=== PATIENT | male | born 1995 | race African-American/Black ===

== ENCOUNTER 2017-08-28 10:57 | Emergency (ER) | payer OTHER ==
[~2017-08-28] VITALS: Ht 172.7 cm; Wt 72.6 kg
[2017-08-28 12:15] VITALS: BP 153/81
[2017-08-28] MEDS ORDERED: AMOX500C PO (12:18)
--- NOTE | 2017-08-28 12:19 | PHYS DOC ---
Adult General Chief Complaint Chief Complaint: SORE THROAT HPI HPI Patient is a 22 year old male presents to the emergency department stating that he developed a sore throat yesterday. He denies any fever, chills or any nausea or vomiting. He does state his had 2 episodes of diarrhea while he's been here in the emergency department. They deny anybody else in the family having diarrhea. Review of Systems Review of Systems Constitutional: Denies fever or chills [] Eyes: Denies change in visual acuity, redness, or eye pain [] HENT: Denies nasal congestion C/o sore throat [] Respiratory: Denies cough or shortness of breath [] Cardiovascular: No additional information not addressed in HPI [] GI: Denies abdominal pain, nausea, vomiting. C/o diarrhea : Denies dysuria or hematuria [] Musculoskeletal: Denies back pain or joint pain [] Integument: Denies rash or skin lesions [] Neurologic: Denies headache, focal weakness or sensory changes [] Endocrine: Denies polyuria or polydipsia [] All other systems were reviewed and found to be within normal limits, except as documented in this note. Physical Exam Physical Exam Constitutional: Well developed, well nourished, no acute distress, non-toxic appearance. [] HENT: Normocephalic, atraumatic, bilateral external ears normal, oropharynx moist, no oral exudates, nose normal. Bilateral TM normal, throat with redness noted bilaterally. No uvula deviation noted. Eyes: PERRLA, EOMI, conjunctiva normal, no discharge. [] Neck: Normal range of motion, no tenderness, supple, no stridor. [] Cardiovascular:Heart rate regular rhythm, no murmur [] Lungs & Thorax: Bilateral breath sounds clear to auscultation [] Abdomen: Bowel sounds normal, soft, no tenderness, no masses, no pulsatile masses. [] Skin: Warm, dry, no erythema, no rash. [] Extremities: No tenderness, no cyanosis, no clubbing, ROM intact, no edema. [] Neurologic: Alert and oriented X 3, normal motor function, normal sensory function, no focal deficits noted. [] Psychologic: Affect normal, judgement normal, mood normal. [] EKG EKG [] Radiology/Procedures Radiology/Procedures [] Course & Med Decision Making Course & Med Decision Making Pertinent Labs and Imaging studies reviewed. (See chart for details) Rapid strep was positive. Patient was provided with the option of a Bicillin injection or amoxicillin pills. Patient has requested the amoxicillin pills. He will be discharged home with recommendations for plenty of fluids cough drops and lozenges to soothe the throat warm saltwater gargles 4 times a day. Also recommended Tylenol or ibuprofen for fever chills or generalized body aches and discomfort. Also recommended Imodium for diarrhea if it last 2-3 days. Clear liquid diet for the next 24 hours. Patient agrees with discharge instructions treatment regimen and followup recommendations. I've spoken with the patient and/or caregivers. I've explained the patient's condition, diagnosis and treatment plan based on information available to me at this time. I've answered the patient's and/or caregivers questions and addressed any concerns. The patient and/or caregivers have a good understanding the patient's diagnosis, condition and treatment plan as can be expected at this point. Vital signs have been stabilized. The patient's condition is stable for discharge from the emergency department. The patient will pursue further outpatient evaluation with her primary care provider or other designated consulting physician as outlined in the discharge instructions. Patient and/or caregivers are agreeable to this plan of care and follow-up instructions have been explained in detail. The patient and/or caregivers have received these instructions in written format and expressed understanding of these discharge instructions. The patient and her caregivers are aware that if any significant change in condition or worsening of symptoms should prompt him to immediately return to this of the closest emergency department. If an emergent department is not readily available I would encourage him to call 911. Van Disclaimer Van Disclaimer This electronic medical record was generated, in whole or in part, using a voice recognition dictation system. Departure Departure Impression: Primary Impression: Strep throat Disposition: 01 HOME, SELF-CARE Condition: STABLE Referrals: UNKNOWN PCP NAME (PCP) Patient Instructions: Strep Throat, [id number] Additional Instructions: Activity as tolerated. Medications as prescribed. Tylenol or ibuprofen for fever chills or generalized body aches and discomfort. Drink plenty of fluids Clear liquid diet for the next 24 hours Warm salt water gargles 4 times a day Change your tooth brush in the next 24 hours Followup with primary care provider in 7-10 days Return to the emergency department as needed for signs and symptoms that become worse. Scripts Amoxicillin (AMOXICILLIN) 500 Mg Capsule 1 CAP PO BID, #20 CAP Prov: JENNIFER ABBOTT APRN 08/28/17 JENNIFER ABBOTT APRN Aug 28, 2017 12:19
[2017-08-29 08:20] LABS: NEGATIVE OBC STREP NEG; POSITIVE OBC STREP POS
== END 2017-08-28 12:25 | disposition home or self-care (01) ==
LOC: ER 10:57
DX: J02.0 Streptococcal pharyngitis (principal); R19.7 Diarrhea, unspecified
CPT/HCPCS: 87880; 99283